=== PATIENT | male | born 1940 | race Caucasian/White ===

== ENCOUNTER 2019-08-05 00:39 | Day surgery (SDC) | payer MEDICARE, SELFPAY ==
[2019-07-29 12:37] VITALS: BMI 31.1
[2019-08-05 09:38] VITALS: BP 151/69; PULSE 102; RESP 16; TEMP 36.8; O2SAT 97; BMI 31.6
--- NOTE | 2019-08-05 09:46 | WPDANESEPPF ---
Anes - Initial Pre Proc Eval Procedure: Operation Date: 08/05/19 10:00 Proposed Procedures p Esophagogastroduodenoscopy - Wilmer Gabriel MD Date/Time: 08/05/19 09:46 Surgeon: Wilmer Gabriel MD Pre Op Diagnosis: Weight Loss Patient Data Age: 79 Gender: M Height: 5 ft 8 in Weight: 94.3 kg Last Vital Signs Temp 36.8 C 08/05/19 09:38 Pulse 102 H 08/05/19 09:38 Resp 16 08/05/19 09:38 BP 151/69 H 08/05/19 09:38 Pulse Ox 97 08/05/19 09:38 Allergies Allergy/AdvReac Type Severity Reaction Status Date / Time No Known Allergies Allergy Mild Verified 08/05/19 09:35 Home Medications Medication Instructions Recorded Confirmed Type ascorbic acid (vitamin C) [Vitamin 1 g PO DAILY 07/29/19 07/29/19 History C] aspirin 81 mg PO DAILY 07/29/19 07/29/19 History cranberry fruit [cranberry] 450 mg PO DAILY 07/29/19 07/29/19 History doxazosin 1 mg PO DAILY 07/29/19 07/29/19 History folic acid 1 mg PO DAILY 07/29/19 07/29/19 History gjcclgvg-gfvr-juk6-C-se-bosw 1 tablet PO BID 07/29/19 07/29/19 History [Osteo Bi-Flex Triple Strength] losartan 100 mg PO DAILY 07/29/19 07/29/19 History meloxicam 15 mg PO DAILY 07/29/19 07/29/19 History methotrexate sodium 15 mg PO WEEKLY 07/29/19 07/29/19 History dziyssxa-tuh-XU-lycopen-lutein 1 tablet PO DAILY 07/29/19 07/29/19 History [Centrum Silver Men] omeprazole 20 mg PO DAILY 08/05/19 08/05/19 History Patient hx anesthesia problems: none Family hx anesthesia problems: none PMFSH Past Medical History Medical History (Updated 08/05/19 @ 09:47 by Guevara Bacon MD) HTN (hypertension) Obesity Anes - Eval Final PreProcedure Day of Procedure 08/05/19 09:46 Patient weight: obese Heart: regular rate and rhythm Lungs: clear to auscultation Airway: Mallampati scale class II Neurological: alert and oriented Last oral intake: >/= 8 hours ASA classification: III Emergent: no Anesthetic plan: proceed Anesthesia type and monitoring: general GIVS and standard monitoring Informed Consent: The patient's anesthetic plan and its attendant risks and benefits were discussed with the patient/family/POA. Questions were solicited and answers provided to the satisfaction of the patient/family/POA.
[2019-08-05] MEDS: LACTATED RINGERS 1,000 ML 150 ML IV CONT ×2 (09:55→10:33)
--- NOTE | 2019-08-05 10:21 | WPDGICN ---
Assessment and Plan Additional Plan This is a 79-year-old white male patient seen in evaluation at the request of Dr. Danilo Lopez. Patient reports vague loss of appetite, nonspecific weight loss. Belching. Symptoms have been progressing over recent weeks. He is very concerned about poor appetite. He states he has tried antacids with no relief of symptoms. Past medical history significant for rheumatoid arthritis, hypertension, Medications include methotrexate, folic acid, fiber supplements, losartan, meloxicam, Family history noncontributory. Physical exam reveals patient to be alert. Oriented x3. Vital signs stable. HEENT exam unremarkable. He is anicteric. Lungs are clear to auscultation and percussion. Heart is without murmur or extra sounds. Abdominal exam bowel sounds are present soft nontender with no hepatosplenomegaly. Digital external rectal exam is normal. Impression 1. Weight loss. 2. Nausea. 3. Belching. 4. Rheumatoid arthritis. On chronic methotrexate use. Plan is for EGD to assess symptoms. We may want to give a trial of acid suppression therapy. I am somewhat concerned over chronic methotrexate use. We may want to check LFTs of these have not been done recently. GI Consult Note Consult date/time: 08/05/19 10:21 HPI: Shantanu Domingo is a 79 year old male [facility] Past Medical History Medical History (Updated 08/05/19 @ 09:47 by Guevara Bacon MD) HTN (hypertension) Obesity Meds Home Medications and Allergies Home Medications Medication Instructions Recorded Confirmed Type ascorbic acid (vitamin C) [Vitamin 1 g PO DAILY 07/29/19 07/29/19 History C] aspirin 81 mg PO DAILY 07/29/19 07/29/19 History cranberry fruit [cranberry] 450 mg PO DAILY 07/29/19 07/29/19 History doxazosin 1 mg PO DAILY 07/29/19 07/29/19 History folic acid 1 mg PO DAILY 07/29/19 07/29/19 History zmisrham-wqye-yrv8-C-se-bosw 1 tablet PO BID 07/29/19 07/29/19 History [Osteo Bi-Flex Triple Strength] losartan 100 mg PO DAILY 07/29/19 07/29/19 History meloxicam 15 mg PO DAILY 07/29/19 07/29/19 History methotrexate sodium 15 mg PO WEEKLY 07/29/19 07/29/19 History vzeexscj-qgr-YB-lycopen-lutein 1 tablet PO DAILY 07/29/19 07/29/19 History [Ayan Crawford Men] omeprazole 20 mg PO DAILY 08/05/19 08/05/19 History Allergies Allergy/AdvReac Type Severity Reaction Status Date / Time No Known Allergies Allergy Mild Verified 08/05/19 09:35 Vital Signs Vital Signs - 24 hr 08/05/19 09:38 Temperature 36.8 C Pulse Rate 102 H Respiratory Rate 16 Blood Pressure 151/69 H Pulse Oximetry 97
[2019-08-05 10:49] VITALS: BP 93/57; PULSE 90; RESP 16; O2SAT 97
[2019-08-05 10:59] VITALS: BP 108/65; PULSE 91; RESP 16; O2SAT 100
[2019-08-05 11:09] VITALS: BP 134/71; PULSE 80; RESP 16; O2SAT 100
[2019-08-05 11:27] LABS: Basophils Percent Auto 0.4 % (0.2-1.2); Eosinophils Absolute Auto 0.1 K/mm3 (0-0.3); Eosinophils Percent Auto 1.7 % (0-4.4); Hematocrit 35.4 % (42.0-52.0); Hemoglobin 11.5 g/dL (14.0-18.0); Immature Granulocyte Absolute 0.02 K/mm3 (0.00-0.031); Immature Granulocyte Percent A 0.4 % (0-0.5); Lymphocytes Absolute Auto 0.89 K/mm3 (0.9-3.2); Lymphocytes Percent Auto 16.5 % (18.3-44.2); Mean Corpuscular HGB Conc 32.5 g/dl (32-36); Mean Corpuscular Hemoglobin 29.6 pg (26-34); Mean Corpuscular Volume 91.2 fl (80-100); Mean Platelet Volume 10.3 fl (7.4-10.4); Monocytes Absolute Auto 0.6 K/mm3 (0.1-0.6); Monocytes Percent Auto 10.2 % (2.6-8.5); Neutrophils Absolute Auto 3.8 K/mm3 (1.3-6.7); Neutrophils Percent Auto 70.8 % (45.5-73.1); Platelet Count Result 163 k/mm3 (150-375); Red Blood Count 3.88 M/mm3 (4.6-6.20); Red Cell Distribution Width 13.6 % (11.5-14.5); White Blood Count 5.4 K/mm3 (4.5-10.0)
[2019-08-05 11:42] LABS: Alanine Aminotransferase 26 U/L (4-50); Albumin Level 3.3 g/dL (3.5-5.1); Alkaline Phosphatase 94 U/L (38-126); Aspartate Amino Transferase 60 U/L (17-59); Bilirubin,Total 1.1 mg/dL (0.2-1.3); Blood Urea Nitrogen 20 mg/dL (9-20); Calcium 7.9 mg/dL (8.4-10.2); Carbon Dioxide 28 mmol/L (22-30); Chloride 100 mmol/L (98-107); Estimated CRCL calculation 82 ml/min; Estimated Glomerular Filt Rate > 60; Glucose 94 mg/dL (75-110); Sodium 138 mmol/L (137-145)
== END 2019-08-05 11:38 | disposition home or self-care (01) ==
PROVIDERS: PCP Family Medicine; Visit Provider Internal Medicine Gastroenterology
PROC: 0DJ08ZZ Inspection of Upper Intestinal Tract, Via Natural or Artificial Opening Endoscopic (ICD-10-PCS; CPT 43235; principal; 2019-08-05 10:00)
DX: C16.0 Malignant neoplasm of cardia (principal); R63.4 Abnormal weight loss; R11.0 Nausea; R14.2 Eructation; M06.9 Rheumatoid arthritis, unspecified; I10 Essential (primary) hypertension; E66.9 Obesity, unspecified; Z68.31 Body mass index [BMI] 31.0-31.9, adult; Z79.82 Long term (current) use of aspirin
CPT/HCPCS: 43239; 36415; 80048; 80076; 85025; 88305; 88342; J2704; J7120

== ENCOUNTER 2019-08-07 15:52 | Outpatient (CLI) | payer MEDICARE, SELFPAY ==
--- NOTE | ~2019-08-07 | CT_ITS ---
EXAMINATION: CT chest abdomen w con DATE: 08/07/2019 16:22 INDICATION: Gastric cardia mass. Mid abdominal pain and weight loss. TECHNIQUE: Computed tomography (CT) of the chest and abdomen was performed with 100 mL Omnipaque-350 intravenous contrast. Automated exposure control and iterative reconstruction technique were employed . The dose-length product was 942.60 mGy-cm. COMPARISON: Chest CT dated 02/11/2007 and chest radiograph dated 03/17/2017 FINDINGS: CHEST CT: Chronic elevation of the right hemidiaphragm with compressive atelectasis at the base of the right mi ddle and lower lobes. No suspicious pulmonary nodules, pulmonary infiltrates, pulmonary edema or pleu ral effusion. Heart size is normal. Atherosclerotic coronary artery calcifications. No pericardial ef fusion. Thoracic aorta is normal in caliber with no dissection. No pathologically enlarged thoracic l ymphadenopathy. Bilateral gynecomastia. No suspicious lytic or blastic bone lesions. ABDOMEN CT: The mass identified at the gastric cardia on prior endoscopy is not definitively identified on CT philip ges. There are however matted gastrohepatic lymph nodes along the gastric cardia consistent with meta static disease. There are multiple hypoenhancing masses throughout the liver consistent with metastat ic disease, the largest measures 10 x 10 x 5 cm extending between segments 6 and 7. There are several additional mildly prominent periportal and upper aortocaval lymph nodes which also suspicious for me tastatic disease. Gallbladder, spleen, pancreas and bilateral adrenal glands are normal. Multiple bilateral parapelvic cysts of the kidneys. Nonobstructing 3-4 mm stone at the lower pole of the right kidney. No abnormal bowel wall thickening or obstruction. Normal appendix. No suspicious lytic or blastic bone lesions in the lumbar spine are visualized iliac crests. Bilateral L5 pars intra-articular is defects. IMPRESSION: 1. Matted lymph nodes along the gastrohepatic ligament and multiple hypoenhancing hepatic masses cons istent with metastatic gastric cancer. The reported biopsied mass at the gastric cardia is unable to be definitively identified on the CT images. 2. No evident osseous or thoracic metastatic disease. 3. Chronic elevation of the right hemidiaphragm with right basilar compressive atelectasis. Reviewed, dictated and finalized at location A. RY SUPERVISOR IMPRESSION: 1. Matted lymph nodes along the gastrohepatic ligament and multiple hypoenhanci ng hepatic masses consistent with metastatic gastric cancer. The reported biops ied mass at the gastric cardia is unable to be definitively identified on the C T images. 2. No evident osseous or thoracic metastatic disease. 3. Chronic elevation of the right hemidiaphragm with right basilar compressive atelectasis.
== END 2019-08-07 15:53 | disposition home or self-care (01) ==
LOC: ANHIMG 16:00
PROVIDERS: PCP Family Medicine; Visit Provider Internal Medicine Gastroenterology
DX: R19.09 Other intra-abdominal and pelvic swelling, mass and lump (principal)
CPT/HCPCS: 71260; 74160; Q9967

== ENCOUNTER 2019-08-14 14:12 | Outpatient (CLI) | payer MEDICARE, SELFPAY ==
[2019-08-14 14:31] LABS: Basophils Percent Auto 0.3 % (0.2-1.2); Eosinophils Absolute Auto 0.1 K/mm3 (0-0.3); Eosinophils Percent Auto 1.9 % (0-4.4); Hematocrit 40.7 % (42.0-52.0); Hemoglobin 13.2 g/dL (14.0-18.0); Immature Granulocyte Absolute 0.02 K/mm3 (0.00-0.031); Immature Granulocyte Percent A 0.3 % (0-0.5); Lymphocytes Absolute Auto 0.89 K/mm3 (0.9-3.2); Lymphocytes Percent Auto 15.1 % (18.3-44.2); Mean Corpuscular HGB Conc 32.4 g/dl (32-36); Mean Corpuscular Hemoglobin 30.1 pg (26-34); Mean Corpuscular Volume 92.9 fl (80-100); Mean Platelet Volume 10.2 fl (7.4-10.4); Monocytes Absolute Auto 0.6 K/mm3 (0.1-0.6); Monocytes Percent Auto 10.2 % (2.6-8.5); Neutrophils Absolute Auto 4.2 K/mm3 (1.3-6.7); Neutrophils Percent Auto 72.2 % (45.5-73.1); Platelet Count Result 206 k/mm3 (150-375); Red Blood Count 4.38 M/mm3 (4.6-6.20); Red Cell Distribution Width 13.9 % (11.5-14.5); White Blood Count 5.9 K/mm3 (4.5-10.0)
[2019-08-14 15:47] LABS: Potassium 4.2 mmol/L (3.4-5.0)
[2019-08-14 15:53] LABS: Alanine Aminotransferase 34 U/L (4-50); Albumin Level 3.8 g/dL (3.5-5.1); Alkaline Phosphatase 135 U/L (38-126); Aspartate Amino Transferase 80 U/L (17-59); Bilirubin,Total 1.4 mg/dL (0.2-1.3); Blood Urea Nitrogen 19 mg/dL (9-20); Calcium 8.8 mg/dL (8.4-10.2); Carbon Dioxide 29 mmol/L (22-30); Chloride 101 mmol/L (98-107); Estimated Glomerular Filt Rate > 60; Glucose 98 mg/dL (75-110); Sodium 137 mmol/L (137-145)
[2019-08-19 17:28] LABS: Alpha Fetoprotein Tumor Marker 4.7 ng/mL (<6.1)
== END 2019-08-14 14:13 | disposition home or self-care (01) ==
LOC: ANHLAB 14:14
PROVIDERS: PCP Family Medicine; Visit Provider Internal Medicine Hematology & Oncology
DX: C16.2 Malignant neoplasm of body of stomach (principal)
CPT/HCPCS: 36415; 80053; 82105; 85025

== ENCOUNTER 2019-08-18 14:51 | Outpatient (CLI) | payer MEDICARE, SELFPAY ==
--- NOTE | 2019-08-18 14:54 | ECG_ITS ---
Measurements Intervals Armstrong Rate: 89 P: 31 NE: 163 QRS: -9 QRSD: 84 T: 47 QT: 340 QTc: 416 Interpretive Statements SINUS RHYTHM WITH SINUS ARRHYTHMIA RSR' IN V1 OR V2, CONSIDER RIGHT VENTRICULAR HYPERTROPHY OR RIGHT VCD DELAYED PRECORDIAL R/S TRANSITION CONSIDER INFERIOR INFARCT, AGE INDETERMINATE ABNORMAL ECG Electronically Signed On 08-18-2019 15:58:24 CDT by Manjit Vidal D.O.
[2019-08-18 15:27] LABS: Prothrombin Time 13.3 Seconds (11.1-14.7)
[2019-08-18 15:28] LABS: Partial Thromboplastin Time 24.9 SECONDS (22.3-36.8)
== END 2019-08-18 14:52 | disposition home or self-care (01) ==
LOC: ANHSURGERY 14:54
PROVIDERS: PCP Family Medicine; Visit Provider Surgery
DX: C16.9 Malignant neoplasm of stomach, unspecified (principal); I10 Essential (primary) hypertension; R94.31 Abnormal electrocardiogram [ECG] [EKG]
CPT/HCPCS: 36415; 85610; 85730; 93005

== ENCOUNTER 2019-08-19 00:57 | Day surgery (SDC) | payer MEDICARE, SELFPAY ==
[2019-08-18 13:31] VITALS: BMI 30.7
--- NOTE | ~2019-08-19 | XR_ITS ---
EXAMINATION: XR fl guide central line place DATE: 08/19/2019 14:39 INDICATION: Port placement. TECHNIQUE: A single fluoroscopic view of the chest was obtained. I was not present. Fluoroscopy expos ure time was 39 seconds. COMPARISON: Chest 2 views 03/17/2017 FINDINGS: The port tip is in superior vena cava. IMPRESSION: 1. Port tip in superior vena cava. Reviewed, dictated and finalized at location A.
--- NOTE | ~2019-08-19 | XR_ITS ---
XR chest port-a-cath/central 08/19/2019 15:04 Indication: Insertion of portacatheter Procedure: AP portable chest Comparison: Comparison to multiple prior studies sequentially, with oldest reviewed study dated 01/06. Findings: Heart size normal. Chronic elevation of the right diaphragm. There is bibasilar airspace di sease. No pleural effusion or pneumothorax. Portacatheter tip in the CC. No acute osseous abnormality . Impression: 1: Bibasilar airspace disease may represent atelectasis and/or pneumonia. Reviewed, dictated and finalized at location A. Impression: 1: Bibasilar airspace disease may represent atelectasis and/or pneumonia.
--- NOTE | 2019-08-19 11:32 | PM.HPGS ---
History of Present Illness History of Present Illness Consent: Risks, benefits, and alternatives Plate of placement of a Port-A-Cath have been discussed and questions answered. Patient agrees to proceed with procedure. Chief complaint: Stomach Ca Narrative: Shantanu Domingo is a 79 year old male who has recently been diagnosed on endoscopy with a gastric tumor. 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 Patient will be undergoing chemotherapy with Dr. Mikey cueto. He presents this date to have a Port-A-Cath placed to use for chemotherapy. Recent CT scan showed a 10 x 10 x 5 cm mass also in the liver consistent with metastatic disease from the tumor on the stomach. Review of Systems Constitutional: Constitutional: Reports no additional constitutional complaints, Reports fatigue and Denies malaise Eyes: Eyes: Denies change in vision and Denies loss of vision ENT: Reports Normal hearing present, Denies change in voice, Denies dizziness, Denies hoarseness and Denies sore throat Cardiovascular: Cardiovascular: Denies chest pain, Denies leg edema and Denies dyspnea Comments: History of hypertension and hyperlipidemia Respiratory: Respiratory: Denies cough, Denies dyspnea and Denies wheezing Gastrointestinal: Gastrointestinal: Denies hematochezia, Denies change in bowel habits and Denies heartburn Genitourinary: Genitourinary: Denies urinary frequency and Denies urinary incontinence Musculoskeletal: Comments: history of long-term arthritis, rheumatoid. Has been on methotrexate for some time. Integumentary/Breasts: Comments: History of skin cancer removed in the past. Neurologic: Reports Normal hearing present, Denies confusion, Denies dizziness, Denies loss of vision, Denies memory loss and Denies seizure-like activity Psychiatric: Psychiatric: Denies confusion, Denies depression and Denies memory loss Endocrine: Endocrine: Denies cold intolerance and Reports fatigue Hematologic/Lymphatic: Hematologic/Lymphatic: Denies easy bleeding and Denies easy bruising Allergic/Immunologic: Allergic/Immunologic: Denies wheezing PMFSH Past Medical History Medical History (Updated 08/19/19 @ 13:34 by Gabriel Galdamez MD) Gastric cancer (~07/2019) HTN (hypertension) Obesity Rheumatoid arthritis (Unknown) Social History Social History Gender identity (if verbalized by the patient): Male Meds Home Medications and Allergies Home Medications Medication Instructions Recorded Confirmed Type ascorbic acid (vitamin C) [Vitamin 1 g PO DAILY 07/29/19 08/19/19 History C] aspirin 81 mg PO DAILY 07/29/19 08/19/19 History cranberry fruit [cranberry] 450 mg PO DAILY 07/29/19 08/19/19 History doxazosin 1 mg PO HS 07/29/19 08/19/19 History folic acid 1 mg PO DAILY 07/29/19 08/19/19 History xozaxipq-csta-vjn7-C-se-bosw 1 tablet PO BID 07/29/19 08/19/19 History [Osteo Bi-Flex Triple Strength] losartan 100 mg PO DAILY 07/29/19 08/19/19 History meloxicam 15 mg PO DAILY 07/29/19 08/19/19 History methotrexate sodium 15 mg PO WEEKLY 07/29/19 08/19/19 History jkrnmxpp-ffj-IY-lycopen-lutein 1 tablet PO DAILY 07/29/19 08/19/19 History [Centrum Silver Men] omeprazole 20 mg PO DAILY 08/05/19 08/19/19 History polyethylene glycol 3350 [Miralax] 17 g PO DAILY 08/18/19 08/19/19 History Allergies Allergy/AdvReac Type Severity Reaction Status Date / Time No Known Allergies Allergy Mild Verified 08/18/19 13:47 Exam Const: General: cooperative, healthy appearing, no acute distress, well developed and alert; No confusion Nutritional Appearance: well nourished Orientation/consciousness: patient oriented x3 and No confusion Limitations: no limitations HENMT: Head: normal to inspection, normocephalic and atraumatic Ears: hearing grossly normal bilaterally General nose exam: Normal external nose present Face and sinus: no edema Mouth: Yes N
[2019-08-19] MEDS: LACTATED RINGERS 1,000 ML 30 ML IV CONT (12:14)
[2019-08-19 12:21] VITALS: BP 151/57; PULSE 100; TEMP 37.2; O2SAT 97
[2019-08-19 13:00] VITALS: BP 151/57; RESP 20; TEMP 37.2; O2SAT 97
--- NOTE | 2019-08-19 13:17 | WPDANESEPPF ---
Anes - Initial Pre Proc Eval Procedure: Operation Date: 08/19/19 13:30 Proposed Procedures p Insertion Felipe Cath - Gabriel Galdamez MD Date/Time: 08/19/19 13:17 Surgeon: Gabriel Galdamez MD Pre Op Diagnosis: Stomach Ca Patient Data Age: 79 Gender: M Height: 5 ft 8 in Weight: 92.5 kg Last Vital Signs Temp 98.9 F 08/19/19 12:21 Pulse 100 08/19/19 12:21 BP 151/57 H 08/19/19 12:21 Pulse Ox 97 08/19/19 12:21 Allergies Allergy/AdvReac Type Severity Reaction Status Date / Time No Known Allergies Allergy Mild Verified 08/18/19 13:47 Home Medications Medication Instructions Recorded Confirmed Type ascorbic acid (vitamin C) [Vitamin 1 g PO DAILY 07/29/19 08/19/19 History C] aspirin 81 mg PO DAILY 07/29/19 08/19/19 History cranberry fruit [cranberry] 450 mg PO DAILY 07/29/19 08/19/19 History doxazosin 1 mg PO HS 07/29/19 08/19/19 History folic acid 1 mg PO DAILY 07/29/19 08/19/19 History oaqhbjpn-sdkq-lxt0-C-se-bosw 1 tablet PO BID 07/29/19 08/19/19 History [Osteo Bi-Flex Triple Strength] losartan 100 mg PO DAILY 07/29/19 08/19/19 History meloxicam 15 mg PO DAILY 07/29/19 08/19/19 History methotrexate sodium 15 mg PO WEEKLY 07/29/19 08/19/19 History ujbescmr-kon-DG-lycopen-lutein 1 tablet PO DAILY 07/29/19 08/19/19 History [Centrum Silver Men] omeprazole 20 mg PO DAILY 08/05/19 08/19/19 History polyethylene glycol 3350 [Miralax] 17 g PO DAILY 08/18/19 08/19/19 History Patient hx anesthesia problems: none Family hx anesthesia problems: none PMFSH Past Medical History Medical History (Updated 08/19/19 @ 13:17 by Doug Shafer MD) Gastric cancer (~07/2019) HTN (hypertension) Obesity Rheumatoid arthritis Social History Social History Gender identity (if verbalized by the patient): Male Anepatti - Car Final PreProcedure Day of Procedure 08/19/19 13:17 Patient weight: overweight Heart: regular rate and rhythm Lungs: clear to auscultation Airway: Mallampati scale class II Neurological: alert and oriented Last oral intake: >/= 8 hours ASA classification: III Emergent: no Anesthetic plan: proceed Anesthesia type and monitoring: general GIVS and standard monitoring Informed Consent: The patient's anesthetic plan and its attendant risks and benefits were discussed with the patient/family/POA. Questions were solicited and answers provided to the satisfaction of the patient/family/POA.
--- NOTE | 2019-08-19 13:19 | SUR.PREOP ---
1300- PT STATED HE WAS FEELING WARM. HE STATED THIS MORNING HE HAD SOME SINUS DRAINAGE. ON ADMIT AT 11;35 TEMP WAS 98.9. RE TOOK PT TEMP: 101.0 AND [address].2. REVIEW[address] DR. SANDERS.
[2019-08-19] MEDS: ceFAZolin 2 GM/D5W 50 ML 2 GM/50 ML BAG IVPB (13:46)
[2019-08-19] MEDS: HEPARIN SODIUM 5,000 UNITS/ML VIAL 5000 UNITS IRRIGATION (13:46)
[2019-08-19] MEDS: BUPIVACAINE/EPINEPHRINE 0.5% 10 ML VIAL INFILTRATE (14:19)
--- NOTE | 2019-08-19 14:37 | SUR.OPER ---
EBL:[id number]
--- NOTE | 2019-08-19 14:47 | PM.PROC ---
Procedure Note - Detailed Date of procedure: 08/19/19 Pre-op diagnosis: Stomach Ca Gastric cancer with liver metastasis Post-op diagnosis: same Procedure performed: placement of Port-A-Cath Description of procedure: Patient was seen and marked in the pre-op area prior to coming to the OR. Patient was brought to the operating room. He was placed supine on the operating table and general IV sedation was induced. The nurse automotive salesperson provided oxygen and IV sedation. Patient's head was carefully turned to the left side while in the supine position and the patient's entire neck and anterior chest on both sides was prepped and draped in the usual sterile fashion. Following this the appropriate time-out was completed confirming procedure and patient. We confirmed that all the needed equipment was present in the room. Following this the ultrasound probe was draped into the field and using the probe we carefully identified the carotid artery and jugular vein on the right neck. I marked the skin directly over the Rt. internal jugular vein. Following this, using the continuous ultrasound guidance, a Cook needle was placed through the skin into this vein. I then was able to draw back good dark blood. Once this was completed a guidewire using a J-tip was advanced through the needle and then the needle and the guidewire cover were withdrawn. C-arm fluoroscopy was used to confirm that the guidewire was nicely in the venous system. Once this was confirmed with the C - arm I preceded on by making the pocket for the port on the patient's anterior right chest approximately 3 centimeters below the clavicle overlying the chest wall. Local anesthetic was infiltrated into the skin where there was a transverse incision marked out. Incision was made and we made a pocket inferior to the incision with just a little dissection superior. The Smart port was tried in the pocket and seemed to fit well. Following this the catheter which had been placed on a tunneling device was tunneled from the port site on the anterior right chest up to the right neck where a small incision had been made with an #11 blade knife. Then the catheter was pulled through so that we would have 15 centimeters to put into the central venous system once the dilation took place. Following this we placed the dilator and sheath over the guidewire in the jugular vein and carefully dilated the tract into the central venous system. The guidewire and dilator were then removed, carefully covering the end of the sheath to prevent air embolus. The end of the catheter which had been cut off straight across and the tip checked was then inserted into the sheath and into the neck. I then carefully pulled the 2 arms of the tear-away sheath away as the public services assistant held the catheter in position with a DeBakey forceps. Following this we checked the position of the catheter with C-arm fluoroscopy confirming that the tip seemed to be in the distal superior vena cava near the junction with the right atrium. I felt that it was in good position and so the rest of the catheter was pulled down toward the feet into the port site. We then measured to the appropriate position to cut the catheter to attach it to the port stem. Then the connector sealing device for the catheter port was placed onto the catheter and then the catheter cut to the appropriate length and inserted onto the stem of the port. Then the connector was advanced onto the stem over the catheter sealing it to the port. A single 3- 0 Prolene suture was also used during this to suture the connector to the port and to the underlying musculature. Following this at one other site the port was sutured to the underlying musculature with the 3-0 Proline. Both prior to connecting the catheter to the port and then using a straight Russell needle following this connection, the port was aspirated of good dark blood and flushed with heparinized saline to keep the catheter from having a
[2019-08-19 14:50] VITALS: BP 109/65; PULSE 80; RESP 12; TEMP 37; O2SAT 96
[2019-08-19 15:20] VITALS: BP 107/62; PULSE 66; RESP 18
[2019-08-19] MEDS: ONDANSETRON INJ 4 MG/2 ML VIAL IV PUSH (15:30)
[2019-08-19 16:00] VITALS: BP 122/67; PULSE 79; RESP 20
== END 2019-08-19 16:24 | disposition home or self-care (01) ==
PROVIDERS: PCP Family Medicine; Visit Provider Surgery
PROC: (CPT 36561; principal; 2019-08-19 13:30)
DX: C16.9 Malignant neoplasm of stomach, unspecified (principal); C78.7 Secondary malignant neoplasm of liver and intrahepatic bile duct; I10 Essential (primary) hypertension; M06.9 Rheumatoid arthritis, unspecified; E66.9 Obesity, unspecified; Z68.31 Body mass index [BMI] 31.0-31.9, adult; Z79.82 Long term (current) use of aspirin
CPT/HCPCS: 36561; 77001; C1788; J0690; J1644; J2405; J2704; J3010; J7030; J7120

== ENCOUNTER 2019-08-20 07:22 | Outpatient (CLI) | payer MEDICARE, SELFPAY ==
--- NOTE | ~2019-08-20 | PE_ITS ---
EXAMINATION: PET skull to mid thigh DATE: 08/20/2019 09:49 INDICATION: Cancer of the body of the stomach. TECHNIQUE: 10.649 mCi of 18-fluorodeoxyglucose (18-FDG) was administered i.v. Low dose computed tomog dari (CT) images were acquired from the base of the brain to the proximal thighs for attenuation cor rection and anatomic localization. Automated exposure control was employed. Dose-length product (DLP) was 911 mGy-cm. Positron emission tomography (PET) images were acquired in the same distribution. COMPARISON: PET CT 12/02/2006, CT chest and abdomen 08/07/2019 FINDINGS: Head/neck: There are no pathologically enlarged lymph nodes. There is a right internal jugular port w ith tip in right atrium. Chest: There is chronic elevation of right hemidiaphragm. There is mild atelectasis in right lung. A calcified left lung nodule is consistent with old granulomatous disease. No pleural effusion. The hea rt size is normal. There are coronary artery calcifications. No pericardial effusion. Abdomen/pelvis/proximal thighs: There are greater than 10 masses in the liver with increased activity . For example, a 5.7 x 5.7 cm mass in right hepatic lobe demonstrates maximum SUV of 9.3. The spleen, pancreas, and adrenal glands are normal. There are peripelvic cysts in the kidneys. There is a 4 mm stone in right kidney. There is increased activity in the cardia and proximal body of the stomach wit hout CT correlate. There is gastrohepatic and periceliac lymphadenopathy with increased activity. The re are enlarged periportal and aortocaval nodes without increased activity. There are no dilated loop s of bowel. There is no free intraperitoneal fluid. There is a left inguinal hernia containing fat. T he prostate is mildly enlarged. IMPRESSION: 1. Increased activity in the cardia and proximal body of the stomach without CT correlate, consistent with primary malignancy. 2. Liver masses and abdominal lymphadenopathy with increased activity, consistent with metastatic dis ease. Reviewed, dictated and finalized at location A. IMPRESSION: 1. Increased activity in the cardia and proximal body of the stomach without CT correlate, consistent with primary malignancy. 2. Liver masses and abdominal lymphadenopathy with increased activity, consiste nt with metastatic disease.
[2019-08-20 07:56] LABS: Glucose Point of Care 126 (65-105)
== END 2019-08-20 07:23 | disposition home or self-care (01) ==
LOC: ANHIMG 07:24
PROVIDERS: PCP Family Medicine; Visit Provider Internal Medicine Hematology & Oncology
DX: C16.2 Malignant neoplasm of body of stomach (principal); R59.0 Localized enlarged lymph nodes; R16.0 Hepatomegaly, not elsewhere classified
CPT/HCPCS: 78815; A9552

== ENCOUNTER 2019-08-25 06:37 | Outpatient (CLI) | payer MEDICARE, SELFPAY ==
--- NOTE | 2019-08-25 | ECHO_ITS ---
Patient Info Name: Shantanu Domingo Age: 79 years : 1940 Gender: Male Ht: 68 in Wt: 202 lbs BSA: 2.12 m2 HR: 98 bpm BP: 146 / 74 mmHg Technical Quality: Fair Exam Date: 08/25/2019 7:04 AM Exam Location: [facility] Pul[facility] Patient Status: Outpatient Admit Date: 08/25/2019 Staff Ordering Physician: Zach Will MD Caustic Mixer: Celina Deshpande RDCS Attending Provider: Zach Will MD Referring Physician: Nicolette TIRADO; Exam Type: CA echo doppler color flow Study Info Indications 151.4 - CANCER OF STOMACH Complete two-dimensional, color flow and Doppler transthoracic echocardiogram is performed. Summary 1. Normal LV size, [id number] LVH, normal LV systolic and diastolic function; LVEF about 60-65%. Mild left atrial enlargement. Mild mitral annular calcification, no significant MR. Aortic valve sclerosis without stenosis. Mild TR, moderate pulmonary hypertension, RVSP 55 mmHg. Left Ventricle Left ventricular chamber dimension is normal. Left ventricular systolic function is normal, estimated at 60-65%. There is mildly increased left ventricular wall thickness. Left ventricular septal wall motion is normal. The left ventricular diastolic function is normal. Right Ventricle Right ventricular chamber dimension is normal. Right ventricular systolic function is normal. Left Atria Left atrial chamber dimension is mildly enlarged. Right Atria Right atrial chamber dimension is normal. Aortic Valve There is mild aortic valve sclerosis. There is no aortic valve stenosis. There is no aortic valve regurgitation. Pulmonic Valve The pulmonic valve is normal. There is no pulmonic valve stenosis. There is no pulmonic regurgitation. Mitral Valve There is no mitral valve stenosis. There is no mitral valve regurgitation. Tricuspid Valve The tricuspid valve leaflets are normal. There is mild tricuspid valve regurgitation. Moderate pulmonary hypertension, estimated pulmonary arterial systolic pressure is 55 mmHg. Pericardium/Pleural The pericardium appears epicardial fat pad. There is no pericardial effusion. Aorta The aortic root size at the sinus of Valsalva is normal. The prox ascending aorta size is normal. Left Ventricular Outflow Tract Name Value Normal LVOT 2D LVOT Diameter 2.1 cm LVOT Doppler LVOT Peak Gradient 6 mmHg LVOT Mean Gradient 3 mmHg LVOT VTI 26 cm LVOT VTI/AV VTI Ratio 1.0 LVOT Stroke Volume 93 ml LVOT CO 8.1 l/min LVOT CI 3.8 l/min/m2 Pulmonic Valve Name Value Normal RVOT Doppler RVOT Peak Gradient 2 mmHg PV Doppler
== END 2019-08-25 06:38 | disposition home or self-care (01) ==
PROVIDERS: PCP Family Medicine; Visit Provider Internal Medicine Hematology & Oncology
DX: Z51.11 Encounter for antineoplastic chemotherapy (principal); C16.2 Malignant neoplasm of body of stomach
CPT/HCPCS: 93306

== ENCOUNTER 2019-11-13 08:27 | Outpatient (CLI) | payer MEDICARE, SELFPAY ==
--- NOTE | ~2019-11-13 | CT_ITS ---
EXAMINATION: CT chest abdomen pelvis w con EXAM DATE: 11/13/2019 09:15 INDICATION: Gastric cancer mid way through treatment. TECHNIQUE: Spiral CT of the chest, abdomen and pelvis was performed following intravenous injection o f 100 mL Omnipaque 350. Axial, coronal and sagittal images were reviewed. Coronal maximum intensity pixel images of chest reviewed. The dose-length product (DLP) for this examination was 873.05 mGy-c m. The exposure was tailored according to patient size (auto mA exposure control), and iterative rec onstruction (ASIR) was used as additional dose reduction technique. Comparison is made to prior exami nation from 08/07/2019. FINDINGS: CHEST: There is a right-sided Chemo-Port. There is segmental right lower lobe atelectasis with elevat ed right hemidiaphragm, unchanged compared to prior study. Lingular calcified granuloma. The lungs ar e otherwise clear. There are no pleural or pericardial effusions. Tracheobronchial tree is patent . There is no mediastinal, hilar or axillary lymphadenopathy. There is no pneumothorax. Heart n ormal in size. There is minimal coronary arterial calcification, arterial sclerosis. ABDOMEN PELVIS: There has been interval decrease in size of multiple liver metastatic lesions. For ex ample a right liver lobe lesion measured 7.4 cm in greatest dimension on prior study and today measur es 5.4 cm. Other lesions have decreased in dimensions in similar proportion. There is splenomegaly, spleen measuring 17 cm. Small amount of ascites. Adrenal glands and pancreas a re unremarkable. Gallbladder is unremarkable. No biliary obstruction. Portal and splenic veins are patent. Kidneys enhance symmetrically. There is no hydronephrosis. There are bilateral renal peripe lvic cysts. There is 4 mm right inferior calyceal stone. There is mild prostatomegaly. The bladder i s unremarkable. Portacaval lymph node measuring 1.4 x 1.6 cm, does not appear significant changed. C an't specifically identify the primary gastric cancer There is mild scattered arteriosclerotic disea se. Small left inguinal fat-containing hernia. Possible identification of an unremarkable appendix. No pericecal inflammation. There is mild scatter ed colonic diverticulosis. There is no adjacent inflammatory change to suggest diverticulitis. The s tomach and small bowel are unremarkable. There is expected amount of colonic stool. No free intrap eritoneal gas. There is new vague 2 cm focus and Schmorl's node at the T11 superior endplate. Sclerosis could be dionte ctive to the new Schmorl's node, or could be development of osteoblastic disease. No other sclerotic foci. There is chronic bilateral L5 spondylolysis with 3 mm anterolisthesis L5 on S1. IMPRESSION: 1. Interval decrease in size of multiple liver metastases. 2. Stable matted appearing periportal lymph nodes. 3. Development of T11 Schmorl's node, associated sclerosis which could be reactive. Osteoblastic dis ease not excludable. 4. Splenomegaly. Small amount of ascites. 5. Left inguinal fat-containing hernia. 6. Right basilar linear atelectasis. Reviewed, dictated and finalized at location A. IMPRESSION: 1. Interval decrease in size of multiple liver metastases. 2. Stable matted appearing periportal lymph nodes. 3. Development of T11 Schmorl's node, associated sclerosis which could be reac tive. Osteoblastic disease not excludable. 4. Splenomegaly. Small amount of ascites. 5. Left inguinal fat-containing hernia. 6. Right basilar linear atelectasis.
== END 2019-11-13 08:28 | disposition home or self-care (01) ==
PROVIDERS: PCP Family Medicine; Visit Provider Internal Medicine Hematology & Oncology
DX: C16.9 Malignant neoplasm of stomach, unspecified (principal); C78.7 Secondary malignant neoplasm of liver and intrahepatic bile duct; K40.90 Unilateral inguinal hernia, without obstruction or gangrene, not specified as recurrent; J98.11 Atelectasis
CPT/HCPCS: 71260; 74177; Q9967

== ENCOUNTER 2019-11-27 09:01 | Outpatient (CLI) | payer MEDICARE, SELFPAY ==
--- NOTE | 2019-11-27 | ECHO_ITS ---
Patient Info Name: Shantanu Domingo Age: 79 years : 1940 Gender: Male Ht: 68 in Wt: 192 lbs BSA: 2.07 m2 HR: 101 bpm BP: 162 / 78 mmHg Technical Quality: Good Exam Date: 11/27/2019 9:33 AM Exam Location: [facility] Pul[facility] Patient Status: Outpatient Admit Date: 11/27/2019 Staff Ordering Physician: Zach Will MD Director Of Sports Medicine: Nenita Pruitt RDCS Attending Provider: Zach Will MD Referring Physician: Nicolette TIRADO; Exam Type: CA echo doppler color flow Study Info Indications - hx/o stomach ca / chemo Complete two-dimensional, color flow and Doppler transthoracic echocardiogram is performed. Summary 1. Left ventricular chamber dimension is normal. 2. Left ventricular systolic function is normal, estimated at 65-70%. 3. There is mildly increased left ventricular wall thickness. 4. The left ventricular diastolic function is grade I diastolic dysfunction. 5. E/e' 11 is mildly elevated. 6. There is mild aortic valve sclerosis. 7. There is trace tricuspid valve regurgitation. 8. Mild pulmonary hypertension, estimated pulmonary arterial systolic pressure is 41 mmHg. Left Ventricle E/e' 11 is mildly elevated. Left ventricular chamber dimension is normal. Left ventricular systolic function is normal, estimated at 65-70%. There is mildly increased left ventricular wall thickness. The left ventricular diastolic function is grade I diastolic dysfunction. Right Ventricle Right ventricular chamber dimension is normal. Right ventricular systolic function is normal. Left Atria Left atrial chamber dimension is normal. Right Atria Right atrial chamber dimension is normal. Aortic Valve The aortic valve is trileaflet. There is mild aortic valve sclerosis. There is no aortic valve stenosis. There is no aortic valve regurgitation. Pulmonic Valve There is no pulmonic regurgitation. Mitral Valve There is no mitral valve stenosis. There is no mitral valve regurgitation. Tricuspid Valve There is trace tricuspid valve regurgitation. Mild pulmonary hypertension, estimated pulmonary arterial systolic pressure is 41 mmHg. Pericardium/Pleural There is no pericardial effusion. Inferior Vena Cava Normal inferior vena cava with >50% collapse upon inspiration consistent with normal right atrial pressure, 5 mmHg. Aorta The aortic root size at the sinus of Valsalva is normal. Left Ventricular Outflow Tract Name Value Normal LVOT 2D LVOT Diameter 2.0 cm LVOT Doppler LVOT Peak Gradient 6 mmHg LVOT Mean Gradient 3 mmHg LVOT VTI 24 cm LVOT VTI/AV VTI Ratio 0.9 LVOT Stroke Volume 77 ml LVOT CO 15.8 l/min LVOT CI 7.6 l/min/m2 Mitral Valve Name Value Normal MV Doppler
== END 2019-11-27 09:02 | disposition home or self-care (01) ==
LOC: ANHCARD 09:03
PROVIDERS: PCP Family Medicine; Visit Provider Internal Medicine Hematology & Oncology
DX: C16.2 Malignant neoplasm of body of stomach (principal); Z51.11 Encounter for antineoplastic chemotherapy; I27.20 Pulmonary hypertension, unspecified
CPT/HCPCS: 93306

== ENCOUNTER 2020-01-27 13:23 | Outpatient (CLI) | payer MEDICARE, SELFPAY ==
--- NOTE | 2020-01-27 | ECHO_ITS ---
Patient Info Name: Shantanu Domingo Age: 80 years : 1940 Gender: Male Ht: 68 in Wt: 185 lbs BSA: 2.03 m2 BP: 132 / 76 mmHg Technical Quality: Good Exam Date: 01/27/2020 2:24 PM Exam Location: [facility] Patient Status: Outpatient Admit Date: 01/27/2020 Staff Ordering Physician: Monica Whyte Sheet Metal Worker Supervisor: Rhys Jones RDCS, RT Attending Provider: Monica Whyte Referring Physician: Pato PERKINS; Exam Type: CA echo doppler color flow Study Info Indications C80.1 - Malignant (primary) neoplasm, unspecified Complete two-dimensional, color flow and Doppler transthoracic echocardiogram is performed. Summary 1. Left ventricular chamber dimension is normal. 2. Left ventricular systolic function is hyperdynamic, estimated at >70%. 3. The left ventricular diastolic function is grade I diastolic dysfunction. 4. E/e' 9 is minimally elevated. 5. Global longitudinal strain is normal at -18.9%. 6. There is trace tricuspid valve regurgitation. 7. No pulmonary hypertension, estimated pulmonary arterial systolic pressure is 37 mmHg. 8. Dilated inferior vena cava with >50% collapse upon inspiration consistent with elevated right atrial pressure, 10 mmHg. Left Ventricle E/e' 9 is minimally elevated. Global longitudinal strain is normal at -18.9%. Left ventricular chamber dimension is normal. Left ventricular systolic function is hyperdynamic, estimated at >70%. The left ventricular diastolic function is grade I diastolic dysfunction. Right Ventricle Right ventricular chamber dimension is normal. Right ventricular systolic function is normal. Left Atria Left atrial chamber dimension is normal. Right Atria Right atrial chamber dimension is normal. Aortic Valve The aortic valve is trileaflet. There is no aortic valve stenosis. There is no aortic valve regurgitation. Pulmonic Valve There is no pulmonic regurgitation. Mitral Valve There is no mitral valve stenosis. There is no mitral valve regurgitation. Tricuspid Valve There is trace tricuspid valve regurgitation. No pulmonary hypertension, estimated pulmonary arterial systolic pressure is 37 mmHg. Pericardium/Pleural There is no pericardial effusion. Inferior Vena Cava Dilated inferior vena cava with >50% collapse upon inspiration consistent with elevated right atrial pressure, 10 mmHg. Aorta The aortic root size at the sinus of Valsalva is normal. Left Ventricular Outflow Tract Name Value Normal LVOT 2D LVOT Diameter 2.0 cm LVOT Doppler LVOT Peak Gradient 3 mmHg LVOT Mean Gradient 2 mmHg LVOT VTI 16 cm LVOT VTI/AV VTI Ratio 0.8 LVOT Stroke Volume 54 ml LVOT CO 5.7 l/min LVOT CI 2.8 l/min/m2 Mitral Valve Name Value Normal
== END 2020-01-27 13:24 | disposition home or self-care (01) ==
PROVIDERS: PCP Family Medicine; Visit Provider Nurse Practitioner Adult Health
DX: C16.2 Malignant neoplasm of body of stomach (principal); Z51.11 Encounter for antineoplastic chemotherapy
CPT/HCPCS: 93306

== ENCOUNTER 2020-03-09 08:59 | Outpatient (CLI) | payer MEDICARE, SELFPAY ==
--- NOTE | ~2020-03-09 | CT_ITS ---
EXAMINATION: CT chest abdomen pelvis w con EXAM DATE: 03/09/2020 09:48 INDICATION: Cancer of gastric body. TECHNIQUE: Spiral CT of the chest, abdomen and pelvis was performed following intravenous injection o f 100 mL Omnipaque 350. Axial, coronal and sagittal images were reviewed. Coronal maximum intensity pixel images of chest reviewed. The dose-length product (DLP) for this examination was 959.13 mGy-c m. The exposure was tailored according to patient size (auto mA exposure control), and iterative rec onstruction (ASIR) was used as additional dose reduction technique. Comparison is made to prior exami nation from 11/13/2019. FINDINGS: CHEST: There is a right-sided Chemo-Port. Chronic right hemidiaphragm elevation with adjacent subseg mental atelectasis. There are no pleural or pericardial effusions. Tracheobronchial tree is patent . There is no mediastinal, hilar or axillary lymphadenopathy. There is no pneumothorax. Heart n ormal in size. There is minimal coronary arterial calcification, arterial sclerosis. ABDOMEN PELVIS: There has been significant interval progression in size and number of innumerable daniel er metastases demonstrating peripheral enhancement and central necrosis. Difficult to measure largest due to confluence of these. Interval development of small to moderate amount of ascites. Pancreas, a drenal glands, spleen are unremarkable. Gallbladder is unremarkable. No biliary obstruction. Portal and splenic veins are patent. Kidneys enhance symmetrically. There is no hydronephrosis. There is 5 mm right inferior calyceal stone. The prostate is unremarkable. The bladder is unremarkable. Mil d periportal lymphadenopathy unchanged. There is mild scattered arteriosclerotic disease. Possible identification of an unremarkable appendix. No pericecal inflammation. There is mild sigmoid colonic diverticulosis. There is no adjacent inflammatory change to suggest diverticulitis. Small left inguinal fat-containing hernia. The stomach and small bowel are unremarkable. There is expecte d amount of colonic stool. No free intraperitoneal gas. Previously described indeterminate region of T11 sclerosis now has mixed sclerotic lytic appearance, consistent with metastatic disease. Mild progression of this T11 mild to moderate pathologic compress ion fracture. Mild to moderate pathologic compression fracture of L2 has developed. There are other s cattered regions of vague osteolytic disease, most apparent in L1 and T9. IMPRESSION: 1. Numerous liver metastases, increase in number and size. 2. 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 3. Stable periportal lymphadenopathy. 4. Development of small to moderate ascites. 5. Chronic right hemidiaphragm elevation, adjacent subsegmental atelectasis. 6. Other chronic findings unchanged. Reviewed, dictated and finalized at location A. IMPRESSION: 1. Numerous liver metastases, increase in number and size. 2. 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 3. Stable periportal lymphadenopathy. 4. Development of small to moderate ascites. 5. Chronic right hemidiaphragm elevation, adjacent subsegmental atelectasis. 6. Other chronic findings unchanged.
== END 2020-03-09 09:00 | disposition home or self-care (01) ==
PROVIDERS: PCP Family Medicine; Visit Provider Internal Medicine Hematology & Oncology
DX: C16.2 Malignant neoplasm of body of stomach (principal); R91.8 Other nonspecific abnormal finding of lung field
CPT/HCPCS: 71260; 74177; Q9967

== ENCOUNTER 2020-03-16 13:25 | Outpatient (NON) | payer MEDICARE, SELFPAY | END 2020-03-16 13:26 | PROVIDERS: PCP Family Medicine; Visit Provider Internal Medicine Hematology & Oncology | DX: C16.2 Malignant neoplasm of body of stomach (principal) | CPT/HCPCS: 81301; 88360; 88381 ==

== ENCOUNTER 2020-03-27 16:59 | Inpatient (IN) | payer MEDICARE, SELFPAY ==
--- NOTE | ~2020-03-27 | XR_ITS ---
XR chest 1V portable DATE: 03/27/2020 17:28 INDICATION: Shortness of breath. Increased weakness after gastric cancer treatment TECHNIQUE: Portable upright AP view on 03/25/2020 at 1730 hours COMPARISON: 03/09/2020 CT thorax FINDINGS: Right Port-A-Cath catheter tip overlies the superior cavoatrial junction. There is elevation of the right leaf of diaphragm. There are bibasilar infiltrates and/atelectasis, m ore prominent on the right. No pneumothorax. Normal heart size. Diffuse osteopenia. IMPRESSION: Elevated right diaphragm and bibasilar infiltrate and/atelectasis, greater on the right Right Port-A-Cath Reviewed, dictated and finalized at location A.
[2020-03-27 17:04] VITALS: BP 95/40; PULSE 108; RESP 20; TEMP 36.4; O2SAT 99
--- NOTE | 2020-03-27 17:15 | ECG_ITS ---
Measurements Intervals [place] Rate: 104 P: -3 VT: 132 QRS: 1 QRSD: 81 T: 34 QT: 303 QTc: 400 Interpretive Statements SINUS TACHYCARDIA LOW QRS VOLTAGE IN PRECORDIAL LEADS BORDERLINE ST-T WAVE ABNORMALITY- HIGH LATERAL LEADS BASELINE ARTIFACT- V1, V3-V6 ABNORMAL ECG Electronically Signed On 03-27-2020 20:36:38 CDT by Manjit Vidal D.O.
[2020-03-27 17:35] LABS: Basophils Percent Auto 0.6 % (0.2-1.2); Eosinophils Absolute Auto 0.1 K/mm3 (0-0.3); Eosinophils Percent Auto 2.3 % (0-4.4); Hematocrit 37.9 % (42.0-52.0); Hemoglobin 11.7 g/dL (14.0-18.0); Immature Granulocyte Absolute 0.02 K/mm3 (0.00-0.031); Immature Granulocyte Percent A 0.4 % (0-0.5); Lymphocytes Absolute Auto 0.94 K/mm3 (0.9-3.2); Mean Corpuscular HGB Conc 30.9 g/dl (32-36); Mean Corpuscular Hemoglobin 33.1 pg (26-34); Mean Corpuscular Volume 107.4 fl (80-100); Mean Platelet Volume 11.8 fl (7.4-10.4); Monocytes Absolute Auto 0.7 K/mm3 (0.1-0.6); Monocytes Percent Auto 14.3 % (2.6-8.5); Neutrophils Absolute Auto 2.9 K/mm3 (1.3-6.7); Neutrophils Percent Auto 62.4 % (45.5-73.1); Platelet Count Result 106 k/mm3 (150-375); Red Blood Count 3.53 M/mm3 (4.6-6.20); Red Cell Distribution Width 17.5 % (11.5-14.5); White Blood Count 4.7 K/mm3 (4.5-10.0)
[2020-03-27 18:00] LABS: Alanine Aminotransferase 36 U/L (4-50); Albumin Level 3.2 g/dL (3.5-5.1); Alkaline Phosphatase 215 U/L (38-126); Anion Gap 7 mmol/L (8-16); Aspartate Amino Transferase 158 U/L (17-59); Bilirubin,Total 1.6 mg/dL (0.2-1.3); Blood Urea Nitrogen 61 mg/dL (9-20); Calcium 9.4 mg/dL (8.4-10.2); Carbon Dioxide 22 mmol/L (22-30); Chloride 114 mmol/L (98-107); Estimated Glomerular Filt Rate 16; Glucose 75 mg/dL (75-110); Potassium 6.4 mmol/L (3.4-5.0); Sodium 143 mmol/L (137-145)
[2020-03-27] MEDS: SODIUM CHLORIDE 0.9% IV 1,000 ML 999 ML IV CONT ×2 (18:04→18:23)
--- NOTE | 2020-03-27 18:18 | ED.WEAKNESS ---
HPI - Weakness General Chief complaint: Weakness Stated complaint: WEAKNESS Time Seen by Provider: 03/27/20 17:08 History of Present Illness HPI Narrative: Patient is an 80-year-old male who presents to the ER with weakness. Patient has history of gastric cancer with metastases to the liver. He sees Dr. Will. He has completed his chemotherapy. reports he has become progressively more weak over the last couple weeks. He is not eating or drinking due to his fatigue. He is too weak to stand about above chair. He is not having diarrhea or vomiting. No fevers or chills or sweats. Is currently awaiting to see if he can be treated with immunotherapy. Related Data Home Medications Medication Instructions Recorded Confirmed Centrum Silver Men 1 tablet PO DAILY 07/29/19 03/27/20 Osteo Bi-Flex Triple Strength 1 tablet PO BID 07/29/19 03/27/20 ascorbic acid (vitamin C) [Vitamin 1 g PO DAILY 07/29/19 03/27/20 C] cranberry 450 mg PO DAILY 07/29/19 03/27/20 doxazosin 1 mg PO HS 07/29/19 03/27/20 losartan 50 mg PO DAILY 07/29/19 03/27/20 omeprazole 20 mg PO DAILY 08/05/19 03/27/20 megestrol 40 mg PO DAILY 11/23/19 03/27/20 furosemide 20 mg PO BID 01/05/20 03/27/20 potassium chloride 20 meq PO DAILY 01/05/20 03/27/20 trazodone 100 mg PO HS 01/05/20 03/27/20 diphenhydramine HCl [Benadryl] 25 mg PO HS PRN 03/27/20 03/27/20 diphenhydramine HCl [Benadryl] 25 mg PO Q6H PRN 03/27/20 03/27/20 naproxen sodium [Aleve] 220 mg PO BID PRN 03/27/20 03/27/20 ondansetron 8 mg PO Q12H PRN 03/27/20 03/27/20 polyethylene glycol 3350 [Miralax] 17 g PO DAILY PRN 03/27/20 03/27/20 Allergies Allergy/AdvReac Type Severity Reaction Status Date / Time No Known Allergies Allergy Mild Verified 03/27/20 17:18 Review of Systems Review of Systems: All systems reviewed & are unremarkable except as noted in HPI and below Constitutional: Constitutional: Denies chills, Reports fatigue, Denies fever(s) and Reports weakness ENT: Denies nasal congestion and Denies sore throat Cardiovascular: Cardiovascular: Denies chest pain and Denies radiating jaw, neck or arm pain Respiratory: Respiratory: Denies cough, Denies dyspnea and Denies wheezing Gastrointestinal: Gastrointestinal: Denies abdominal pain, Denies nausea and Denies vomiting Neurologic: Denies syncope, Denies focal weakness and Denies numbness PMFSH Past Medical History Medical History (Updated 03/27/20 @ 23:11 by Thad Baig MD) Gastric cancer (~07/2019) HTN (hypertension) Obesity Rheumatoid arthritis (Unknown) Surgical History Surgical History History of carpal tunnel release of both wrists Hx of tonsillectomy Status post laser cataract surgery of both eyes Family History Family History (Updated 03/27/20 @ 20:12 by Beth Osorio RN) Mother Colon cancer Father Kidney failure Sibling Cancer Lymphoma Social History Social History Smoking status: Never smoker Alcohol intake: current Substance use: never Substance use type: does not use Gender identity (if verbalized by the patient): Male Spiritual care concerns: No Exam Narrative: Exam Narrative: GENERAL: Chronically ill-appearing, well-nourished, and in no acute distress. HEAD: Normocephalic, atraumatic. EYES: PERRL and EOMI. ENT: Mucous membranes moist. CHEST: Clear to auscultation. No respiratory distress. HEART: Tachycardic and regular. Normal peripheral pulses. ABDOMEN: Soft, nontender, nondistended. EXTREMITIES: Normal range of motion. No edema. SKIN: Warm, dry, no rash. NEURO: Alert and oriented x3. Course Course Emergency Course: Admit to the hospitalist service for hydration. Family reports patient has not seen a water taxi captain for kidney issues in the past. We will see how he responds. Vital Signs Vital signs: Vital Signs Temperature 97.6 F 03/27/20 17:04 Pulse R
[2020-03-27 18:24] VITALS: BP 117/50; PULSE 93; RESP 18; TEMP 36.1; O2SAT 92
[2020-03-27] MEDS: INSULIN HUMAN REGULAR (*BKC) 100 UNITS/ML IV PUSH (18:41)
[2020-03-27] MEDS: DEXTROSE 50% 25 GM/50 ML SYRINGE IV PUSH ×2 (18:42→23:34)
[2020-03-27 19:06] LABS: Add Urine Microscopic? YES; Appearance Urine Clear (Clear); Bacteria Urine Trace /hpf; Bilirubin Urine Negative (Negative); Blood Urine Negative (Negative); Color Urine Yellow (Yellow); Glucose Urine UA Negative (Negative); Hyaline Casts Urine 50+ /lpf; Ketones Urine Negative (Negative); Leukocyte Esterase Ur Negative LEU/UL (Negative); Mucus Urine Rare /lpf; Nitrate Urine Negative (Negative); Protein Urine Negative (Negative); Specific Grav Ur 1.011 (1.001-1.035); Squamous Epithelial Cell Urine Occasional /hpf (Few); Urobilinogen Urine Negative mg/dL (<2.0); WBC Urine 0-3 /hpf
[2020-03-27 19:42] VITALS: BP 129/59; PULSE 97; RESP 22; O2SAT 96
[2020-03-27 20:00] VITALS: BP 112/54; PULSE 100; PULSE 97; RESP 22; RESP 24; TEMP 35.7; O2SAT 96; O2SAT 97; BMI 27.3
--- NOTE | 2020-03-27 20:05 | ADMGEN ---
This patient, Shantanu Domingo, was admitted to IMU Room 204-01 at 1951. Patient/family oriented to hospital policies and general routines including ID bracelet, bed and alarms, visiting hours, pain management, procedures, bathroom and other care routines, personal items, smoking policy, room service/diet, and visiting hours. Information on how to activate the Rapid Response Team has been discussed. Patient/Family are encouraged to report perceived risks to care and to ask questions if they do not understand what they are told or what they should do.
[2020-03-27 20:27] LABS: Anion Gap 5 mmol/L (8-16); Blood Urea Nitrogen 60 mg/dL (9-20); Calcium 8.5 mg/dL (8.4-10.2); Carbon Dioxide 22 mmol/L (22-30); Chloride 115 mmol/L (98-107); Estimated Glomerular Filt Rate 18; Glucose 72 mg/dL (75-110); Potassium 6.2 mmol/L (3.4-5.0); Sodium 142 mmol/L (137-145)
[2020-03-27 20:38] LABS: Glucose Point of Care 66 (65-105)
[2020-03-27 22:00] VITALS: PULSE 94
--- NOTE | 2020-03-27 22:12 | PM.IMHP ---
H&P: HPI History of Present Illness Date/Time: 03/27/20 22:12 Chief complaint: kailash, hyperkalemia Narrative: Shantanu Domingo is a 80 year old male with PMHx significant for Gastric CA diagnosed earlier in the year he has undergone chemotherapy for the last 6 months or so, patient presented to ED due to generalized weakness, no fevers, no rigors, no chills, no n/v/abdominal pain, no sob, no cough, no sputum production, no chest pain, no loc, no falls, poor appetite, weight loss of roughly 30 pounds in the last 6 months or so. Patient was found to have high potassium level and elevated Bun and creatinine. Review of Systems Review of Systems: Narrative: Patient presented to ED due to generalized weakness. Constitutional: Constitutional: Reports fatigue, Reports lethargy, Reports poor appetite and Reports weight loss Eyes: Comments: no vision changes. ENT: Comments: no ear pain, no nasal discharge, no throat pain. Cardiovascular: Comments: no chest pain, no sob, no pnd, no leg swelling. Respiratory: Comments: no sob, no cough, no sputum production. Gastrointestinal: Comments: no abdominal pain, no n/v/diarrhea. Musculoskeletal: Comments: no joint swelling, no joint pain. Integumentary/Breasts: Comments: no rashes. Neurologic: Comments: no sensory motor deficit Hematologic/Lymphatic: Comments: No LAP PMFSH Past Medical History Medical History (Updated 03/28/20 @ 01:24 by Elloit Hu MD) Gastric cancer (~07/2019) HTN (hypertension) Obesity Rheumatoid arthritis (Unknown) Surgical History Surgical History History of carpal tunnel release of both wrists Hx of tonsillectomy Status post laser cataract surgery of both eyes Family History Family History (Updated 03/27/20 @ 20:12 by Beth Osorio RN) Mother Colon cancer Father Kidney failure Sibling Cancer Lymphoma Social History Social History Smoking status: Never smoker Alcohol intake: current Substance use: never Substance use type: does not use Gender identity (if verbalized by the patient): Male Spiritual care concerns: No Meds Home Medications and Allergies Home Medications Medication Instructions Recorded Confirmed Type Centrum Silver Men 1 tablet PO DAILY 07/29/19 03/27/20 History Osteo Bi-Flex Triple Strength 1 tablet PO BID 07/29/19 03/27/20 History ascorbic acid (vitamin C) [Vitamin 1 g PO DAILY 07/29/19 03/27/20 History C] cranberry 450 mg PO DAILY 07/29/19 03/27/20 History doxazosin 1 mg PO HS 07/29/19 03/27/20 History losartan 50 mg PO DAILY 07/29/19 03/27/20 History omeprazole 20 mg PO DAILY 08/05/19 03/27/20 History megestrol 40 mg PO DAILY 11/23/19 03/27/20 History furosemide 20 mg PO BID 01/05/20 03/27/20 History potassium chloride 20 meq PO DAILY 01/05/20 03/27/20 History trazodone 100 mg PO HS 01/05/20 03/27/20 History diphenhydramine HCl [Benadryl] 25 mg PO HS PRN 03/27/20 03/27/20 History diphenhydramine HCl [Benadryl] 25 mg PO Q6H PRN 03/27/20 03/27/20 History naproxen sodium [Aleve] 220 mg PO BID PRN 03/27/20 03/27/20 History ondansetron 8 mg PO Q12H PRN 03/27/20 03/27/20 History polyethylene glycol 3350 [Miralax] 17 g PO DAILY PRN 03/27/20 03/27/20 History Allergies Allergy/AdvReac Type Severity Reaction Status Date / Time No Known Allergies Allergy Mild Verified 03/27/20 17:18 Vital Signs Vital Signs - 24 hr 03/27/20 17:04 03/27/20 18:24 03/27/20 19:42 Temperature 97.6 F 97.0 F L Pulse Rate 108 H 93 97 Respiratory Rate 20 18 22 H Blood Pressure 95/40 L 117/50 L 129/59 L Pulse Oximetry 99 92 96 03/27/20 20:00 03/27/20 22:00 Temperature 96.2 F L Pulse Rate 100 94 Respiratory Rate 24 H Blood Pressure 112/54 L Pulse Oximetry 97 Exam Narrative: Exam Narrative: Chronically ill looking. Generalized pallor. Const: General: cooperative, no acute distress, well dev
[2020-03-27 23:24] VITALS: BP 116/59; PULSE 101; RESP 16; TEMP 36.1; O2SAT 95
[2020-03-27] MEDS: SODIUM BICARBONATE 8.4% 50 MEQ/50 ML VIAL IV PUSH (23:34)
[2020-03-27] MEDS: CALCIUM GLUC 2,000 MG/NS 100ML 2,000 MG/100 ML BAG 100 MG IVPB (23:35)
[2020-03-27] MEDS: SODIUM POLYSTYRENE SULFONONATE 15 GM/60 ML BTL 30 GM RECTAL (23:35)
[2020-03-27] MEDS: SODIUM CHLORIDE 0.9% IV 1,000 ML 150 ML IV CONT (23:36)
[2020-03-27] MEDS: INSULIN HUMAN REGULAR (*BKC) 100 UNITS/ML 10 UNITS IV PUSH (23:37)
[2020-03-28] VITALS (14 sets, daily range): BP systolic 96–115; BP diastolic 44–55; PULSE 94–108; RESP 14–24; TEMP 35.9–36.5; O2SAT 95–98; BMI 27.5
[2020-03-28] MEDS: SODIUM CHLORIDE 0.9% IV 1,000 ML 75 ML IV CONT (02:00)
[2020-03-28 03:00] LABS: Anion Gap 0 mmol/L (8-16); Blood Urea Nitrogen 59 mg/dL (9-20); Calcium 9.2 mg/dL (8.4-10.2); Carbon Dioxide 26 mmol/L (22-30); Chloride 117 mmol/L (98-107); Estimated CRCL calculation 17 ml/min; Estimated Glomerular Filt Rate 19; Glucose 94 mg/dL (75-110); Potassium 5.9 mmol/L (3.4-5.0); Sodium 143 mmol/L (137-145)
[2020-03-28 08:51] LABS: Glucose Point of Care 67 (65-105)
[2020-03-28] MEDS: PANTOPRAZOLE SOD SESQUIHYDRATE 20 MG TAB PO (09:12)
[2020-03-28] MEDS: MEGESTROL ACETATE (*CHEMO) 40 MG TABLET PO (09:12)
[2020-03-28 09:19] LABS: Glucose Point of Care 72 (65-105)
[2020-03-28 11:12] LABS: Glucose Point of Care 102 (65-105)
--- NOTE | 2020-03-28 11:55 | PM.IMPN ---
Progress Note: A&P Assessment and Plan (1) Acute kidney injury: Code(s): N17.9 - Acute kidney failure, unspecified Status: Acute (2) Acute hyperkalemia: Code(s): E87.5 - Hyperkalemia Status: Acute (3) Gastric cancer: Onset Date: ~07/2019 Code(s): C16.9 - Malignant neoplasm of stomach, unspecified Status: Chronic (4) Rheumatoid arthritis: Onset Date: Unknown Code(s): M06.9 - Rheumatoid arthritis, unspecified Status: Acute (5) HTN (hypertension): Code(s): I10 - Essential (primary) hypertension Status: Acute Additional Plan Long discussion with patient and family about options. informed the patient and family about oncologist recommendation. Will have case management discuss with them about hospice. Will hold on further treatment at this time. Pain medications available. Further recommendations after family speaks with case management. Subjective Date/time seen: 03/28/20 11:55 Interval history: Date of service 03/28 80yo male with metastatic gastric cancer here for weakness and found to have BRIAN and hyperkalemia. Upon entering the room, the patient was speaking with the erp consultant about hospice. They are seeing if [employer] will pay for immunotherapy treatment but patient also states that he does not want to keep fighting. His states she has a hard time getting him to the chemo treatments as it is now. After my meeting with family, I spoke with Dr Will by phone who stated that the immunotherapy treatment would offer only a slim chance of success. He recommended hospice. Family and patient made aware of this information. Exam Narrative: Exam Narrative: AF 96.7 101 101/50 18 Gen - chronically ill appearing male Chest - clear anteriorly CV - RRR S1/S2 Abd - Soft, distended, midly tender Ext - No pedal edema Psych - sad affect Skin - Warm and dry Objective Data Vital Signs Vital Signs: Vital Signs - 24 hr 03/27/20 17:04 03/27/20 18:24 03/27/20 19:42 Temperature 97.6 F 97.0 F L Pulse Rate 108 H 93 97 Respiratory Rate 20 18 22 H Blood Pressure 95/40 L 117/50 L 129/59 L Pulse Oximetry 99 92 96 03/27/20 20:00 03/27/20 22:00 03/27/20 23:24 Temperature 96.2 F L 96.9 F L Pulse Rate 100 94 101 H Respiratory Rate 24 H 16 Blood Pressure 112/54 L 116/59 L Pulse Oximetry 97 95 03/28/20 00:00 03/28/20 02:00 03/28/20 04:00 Temperature 97.7 F Pulse Rate 102 H 102 H 94 Respiratory Rate 16 18 Blood Pressure 115/50 L Pulse Oximetry 95 95 03/28/20 06:00 03/28/20 07:12 03/28/20 08:00 Temperature 96.7 F L Pulse Rate 102 H 96 103 H Respiratory Rate 18 Blood Pressure 101/50 L Pulse Oximetry 95 03/28/20 10:00 Temperature Pulse Rate 101 H Respiratory Rate Blood Pressure Pulse Oximetry Intake/Output Intake/Output: Intake & Output 03/25/20 03/26/20 03/27/20 03/28/20 23:59 23:59 23:59 23:59 Intake Total 1000 Output Total 300 Balance 1000 -300 Meds/Results Medications: Active Medications Generic Name Dose Route Start Last Admin Trade Name Freq PRN Reason Stop Dose Admin Acetaminophen 650 mg 03/27/20 18:40 Acetaminophen 325 Mg Tablet PO Q4H PRN Mild Pain (1-3) or Fever Hydrocodone Bitart/Acetaminophen 1 tab 03/27/20 18:40 Hydrocodone/Acetaminophen (*Crx) 5-325 Mg Tablet PO Q4H PRN Pain Rated 4-6 Diphenhydramine HCl 25 mg 03/27/20 22:13 Diphenhydramine Hcl Cap 25 Mg Capsule PO Q6H PRN Congestion Sodium Chloride 1,000 mls @ 75 mls/hr 03/28/20 00:15 03/28/20 02:00 Normal Saline Iv IV CONT 75 mls/hr .[id number] ANAMARIA Administration Megestrol Acetate 40 mg 03/28/20 09:00 03/28/20 09:12 Megestrol Acetate (*Chemo) 40 Mg Tablet PO 40 mg DAILY ANAMARIA Administration Morphine Sulfate 4 mg 03/27/20 18:40 Morphine Sulfate (*Crx) 4 Mg/Ml Inj IV PUSH Q2H PRN Pain Rated 7-10 Ondansetron HCl 4 mg
[2020-03-28 13:09] LABS: Glucose Point of Care 88 (65-105)
[2020-03-28 15:29] LABS: Glucose Point of Care 81 (65-105)
--- NOTE | 2020-03-28 18:01 | PC.NURSE ---
Orders to transfer to medical- report given to Delicia RN- pt transferred to room 344 via bed accompanied by staff and - belongings with pt
--- NOTE | 2020-03-28 18:08 | PC.NURSE ---
This patient, Shantanu Domingo, was received from IMU on 03/28/20 at 1805. Personal belongings list checked and signed. Patient/family oriented to unit policies and routines
--- NOTE | 2020-03-28 18:33 | PC.NURSE ---
After pt was transferred to the floor from IMU, it was confirmed that pt did not have any valuables locked away on IMU.
[2020-03-28] MEDS: traZODone HCL 50 MG TABLET 100 MG PO (20:37)
[2020-03-28 20:51] LABS: Glucose Point of Care 93 (65-105)
[2020-03-29 03:03] LABS: Glucose Point of Care 69 (65-105)
[2020-03-29] MEDS: MEGESTROL ACETATE (*CHEMO) 40 MG TABLET PO (08:11)
[2020-03-29] MEDS: PANTOPRAZOLE SOD SESQUIHYDRATE 20 MG TAB PO (08:11)
[2020-03-29 08:22] LABS: Glucose Point of Care 74 (65-105)
--- NOTE | 2020-03-31 18:26 | PM.DS ---
DS: Admitting Diagnosis Admitting Diagnosis Admitting Diagnosis: kailash, hyperkalemia DS: Discharge Diagnosis Discharge Diagnosis (1) Acute kidney injury: Code(s): N17.9 - Acute kidney failure, unspecified Status: Acute Assessment and Plan: Likely to be pre renal azotemia held diuretics and ARB. Gentle hydration and did improve slightly to creatinine of 3.1 and patient and family decided to enter hospice and no further labs were drawn. (2) Acute hyperkalemia: Code(s): E87.5 - Hyperkalemia Status: Acute Assessment and Plan: Held ARB and KCL. Was given calcium gluconate, bicarbonate, and Kayexalate with slight decrease in potassium. Patient decided enter hospice and no further evaluation was given. (3) Gastric cancer: Onset Date: ~07/2019 Code(s): C16.9 - Malignant neoplasm of stomach, unspecified Status: Chronic Assessment and Plan: Undergoing Chemotherapy Very poor performance status and prognosis and patient and family entered hospice. (4) Rheumatoid arthritis: Onset Date: Unknown Code(s): M06.9 - Rheumatoid arthritis, unspecified Status: Acute Assessment and Plan: Stable (5) HTN (hypertension): Code(s): I10 - Essential (primary) hypertension Status: Acute Assessment and Plan: Stable With doxazosin only Continue to monitor DS: Summary Hospital Course Hospital Course: 80-year-old hypertensive male with known metastatic gastric carcinoma admitted with dehydration acute renal failure and hyperkalemia. Initially hydrated and hyperkalemia treated with improvement in both but due to his poor prognosis and poor performance status to family decided tender the hospice program and he was discharged to home hospice. Time Spent with Patient Time attestation: Total time spent providing and/or coordinating discharge services: 35 minutes Exam Narrative: Exam Narrative: condition on discharge blood pressure 106/54 pulse is 106 sat 98% on room air afebrile lungs clear CV tachy no murmurs abdomen is soft nontender extremities without edema neuro he was somewhat despondent withdrawn prognosis is poor and he was discharged into home hospice DS: Data Data Completed and Pending Labs on day of discharge: Preliminary micro results at discharge 03/27/20 21:03 Blood Culture - Preliminary Blood 03/27/20 21:04 Blood Culture - Preliminary Blood Discharge Plan Discharge Attending physician on discharge: Sohan Bello Consulting providers: Elliot Hu V. ; Manjit Vidal ; Salvador Hines Discharging Clinician: Sohan Bello Patient Disposition: Hospice - Home Activity: as tolerated Diet: as tolerated Patient Instructions: Acute Kidney Injury (DC), Hyperkalemia (DC) Stand Alone Forms: General Discharge Information Follow-up/Referrals: Danilo Lopez MD [Primary Care Provider] - Keep Reg. Scheduled Appt. Discharge Medications: Continued megestrol 40 mg Tablet 40 mg PO DAILY RF: 0 trazodone 50 mg Tablet 100 mg PO HS RF: 0 doxazosin 1 mg Tablet 1 mg PO HS RF: 0 omeprazole 20 mg Capsule,Delayed Release(Dr/Ec) 20 mg PO DAILY RF: 0 polyethylene glycol 3350 [Miralax] 17 gram Powder In Packet 17 g PO DAILY PRN (Reason: Constipation) RF: 0 ondansetron 8 mg Tablet,Disintegrating 8 mg PO Q12H PRN (Reason: Abdominal Discomfort) RF: 0 diphenhydramine HCl [Benadryl] 25 mg Capsule 25 mg PO HS PRN (Reason: Congestion) RF: 0 diphenhydramine HCl [Benadryl] 25 mg Capsule 25 mg PO Q6H PRN (Reason: Congestion) RF: 0 Discontinued furosemide 20 mg Tablet 20 mg PO BID RF: 0 potassium chloride 20 mEq Tablet Extended Release 20 meq PO DAILY RF: 0 ascorbic acid (vitamin C) [Vitamin C] 1,000 mg Tablet 1 g PO DAILY RF: 0 losartan 100 mg Tablet 50 mg PO DAILY RF: 0 cranberry 450 mg Tablet 450 mg PO DAILY RF:
== END 2020-03-29 12:30 | disposition hospice, home (50) | DRG 683 ==
LOC: ANHED 18:48 → ANHIMU 23:11 → ANH3MED 03-28 22:50 → ANHIMU 03-31 16:11
PROVIDERS: Internal Medicine; Physician Assistant; Admitting Provider Internal Medicine; Emergency Provider Emergency Medicine; PCP Family Medicine; Visit Provider Internal Medicine
DX: N17.9 Acute kidney failure, unspecified (principal); C16.9 Malignant neoplasm of stomach, unspecified; C78.7 Secondary malignant neoplasm of liver and intrahepatic bile duct; E87.5 Hyperkalemia; E86.0 Dehydration; M06.9 Rheumatoid arthritis, unspecified; I10 Essential (primary) hypertension; Z98.42 Cataract extraction status, left eye; Z98.41 Cataract extraction status, right eye
CPT/HCPCS: 36415; 71045; 80048; 80053; 81001; 85025; 87040; 93005; 96361; 96374; 97161; 99285; A9270; J0610; J1815; J7030